=== PATIENT | female | born 1980 | race Caucasian/White ===

== ENCOUNTER 2020-04-19 17:19 | Outpatient (CLI) | payer OTHER, SELFPAY ==
[2020-04-19 18:39] LABS: Influenza Control Valid (Valid); SARS-CoV-2 Ag Negative (Negative)
[2020-04-20 23:33] LABS: SARS-CoV-2 RNA PCR Negative
== END 2020-04-19 17:20 | disposition home or self-care (01) ==
LOC: CHSLAB 17:28
PROVIDERS: PCP Family Medicine; Visit Provider Family Medicine
DX: J00 Acute nasopharyngitis [common cold] (principal); Z20.822 Contact with and (suspected) exposure to COVID-19
CPT/HCPCS: 87426; 87804; C9803; U0003

== ENCOUNTER 2021-05-02 08:48 | Outpatient (CLI) | payer OTHER, SELFPAY ==
[2021-05-02 16:15] LABS: SARS-CoV-2 Ag Negative (Negative)
[2021-05-03 21:12] LABS: SARS-CoV-2 RNA PCR Negative
== END 2021-05-02 08:49 | disposition home or self-care (01) ==
LOC: CHSLAB 08:49
PROVIDERS: PCP Family Medicine; Visit Provider Family Medicine
DX: J06.9 Acute upper respiratory infection, unspecified (principal); Z20.822 Contact with and (suspected) exposure to COVID-19
CPT/HCPCS: 87426; C9803; U0003; U0005

== ENCOUNTER 2022-02-28 15:44 | Outpatient (CLI) | payer OTHER, SELFPAY ==
--- NOTE | ~2022-02-28 | XR_ITS ---
EXAMINATION: XR lumbar spine 2-3V DATE: 02/28/2022 16:10 INDICATION: Low back pain TECHNIQUE: Anteroposterior and lateral views of the lumbar spine, and cone-down lateral view of the l umbosacral junction were obtained. COMPARISON: None. FINDINGS: There are 2 mm of anterolisthesis of L5 on S1. Vertebral body alignment is otherwise normal . There is mild loss of intervertebral disc space height at L4-5. Again noted is a right-sided L5 par s interarticularis defects. There is no fracture. There is levocurvature of the lumbar spine. A moder ate volume of colonic stool is present. IMPRESSION: 1. Mild lumbar spondylosis without acute findings. Reviewed, dictated and finalized at location F. TY ADVISER
== END 2022-02-28 15:45 | disposition home or self-care (01) ==
LOC: CHSIMG 15:46
PROVIDERS: PCP Family Medicine; Visit Provider Family Medicine
DX: M54.9 Dorsalgia, unspecified (principal)
CPT/HCPCS: 72100

== ENCOUNTER 2022-03-26 12:36 | Outpatient (RCR) | payer OTHER, SELFPAY ==
--- NOTE | 2022-03-26 16:20 | PTOPEVAL1 ---
Assessment and note entered by Murphy Dudley, PT Evaluation Information Assessment Status Evaluation Diagnosis dorsalgia Onset 3 years ago Subjective Information Poonam reports she had severe back pain lifting her kid out of either the crib or playpen 3 years ago basically immobilizing her for a week and then hurt her back again 2 years ago, but not as bad. Since then she will have on/off back pain which she does not appear to know of a rhyme or reason for the pain. She will reports when she sleeps on her daughter's bed mattress it does bother her. She has an autistic son that she does have to help with his mobility. Reported Pain Level Pain Score 0: Self Report Additional Pain Score Comments Currently in no pain, but reports that she could start hurting tonight or tomorrow or next month. Assessment PT Clinical Summary Poonam is a 41 year old female coming into the clinic with recurrent exacerbations of low back pain starting three years ago. She presents with hip and core weakness along with hamstring and quads tightness the L side worse than the R side. Patient has signs and symptoms similar to sacroiliac dysfunction. Patient went home with HEP per doctor's order. Plan of Care PT Services Indicated No Treatment Frequency and 1 visit for HEP discharged from skilled physical Duration therapy. These treatments will address the objective and functional deficits as defined above. The patient will be advanced safely and appropriately in order for the patient to progress towards his/her prior level of function. Additional exercises will be introduced and as well as a comprehensive home exercise program upon discharge, if needed, ?to ensure carryover of functional gains achieved in the clinic. This treatment plan has been reviewed and agreement upon by the patient.
== END 2022-03-28 07:34 | disposition home or self-care (01) ==
LOC: ANHPT 12:36
PROVIDERS: PCP Family Medicine; Visit Provider Family Medicine
DX: M54.9 Dorsalgia, unspecified (principal); G89.29 Other chronic pain
CPT/HCPCS: 97110; 97161

== ENCOUNTER 2022-10-22 10:06 | Outpatient (RCR) | payer OTHER, SELFPAY ==
--- NOTE | 2022-10-22 11:06 | OPREHPOC ---
Outpatient Therapy Plan of Care This is a Multidisciplinary Plan of Care that may contain components documented by all disciplines (PT, OT, and ST.) PT Problem 1 PT Problem #1 Knowledge Deficit PT Goal 1 Goal Patient will demonstrate independence with home exercise program PT Problem 2 PT Problem #2 Pain PT Goal 1 Goal 1. Patient will report back pain at 2/10 with walking at home 2. Patient will report back pain at 2/10 when laying in bed PT Problem 3 PT Problem #3 Impaired Functional Mobil PT Goal 1 Goal 1. Patient will self report ability to lift son at home with back pain rated as 2/10 or less PT Problem 4 PT Problem #4 Impaired Flexibility PT Goal 1 Goal 1. Patient will demonstrate bilateral hamstring length at 80 degrees PT Problem 5 PT Problem #5 Impaired Strength PT Goal 1 Goal 1. Patient will demonstrate ability to perform 20 reps supine straight leg raise 2. Patient will demonstrate ability to perform 20 reps prone hip extension
--- NOTE | 2022-10-22 11:06 | PTOPEVAL1 ---
Assessment and note entered by Hailey Ybarra, PT Evaluation Information Assessment Status Evaluation Diagnosis back pain, L5 pars interticularis defect R side Onset 3 years ago Subjective Information Patient referred to physical therapy due to back pain by primary MD. Patient has an appointment with the surgeon on November 02 to determine plan of care. Patient currently denies pain however at its worst pain will reach 10/10 limiting ability to stand. Patient denies numbness or tingling of extremities or bowel/bladder incontinence. Patient goal is to decrease pain and be able to sampler pickup her 5 year old son. Reported Pain Level Pain Score 0: Self Report Additional Pain Score Comments pain can increase to 10/10 worsened by lifting or laying. Patient reports she is able to relieve her pain by sitting up. Patient uses lidocaine patches which provide intermittent relief. Assessment PT Clinical Summary Patient was referred to PT by primary physician due to chronic back pain. Patient has an appointment scheduled with surgeon at [facility] for November 02 due to finding of L5 pars interarticularis fx and other potential fractures. Patient currently reporting pain as 0/10 however reports on most days her pain can increase to 10/10 with her being unable to get up out of the chair. Patient presents with core and lower extremity weakness, tightness of bilateral hamstring/ piriformis musculature, paraspinal hypomobility. Lumbar mobility not assessed at this time and spine kept in neutral throughout assessment, following surgeon appt and further discussion regarding medical plan of care lumbar mobility may be assessed. Patient would benefit from skilled therapy services 1-2x/wk for 4 weeks to improve core/lower extremity strength, improve muscle length, improve posture in order to perform daily activities at home without pain. Patient educated regarding log rolling technique when getting in/ out of bed and to avoid lifting heavy objects until appointment with surgeon and further plan of care is determined. Plan of Care Interventions Aquatic Therapy,Electrical Stimulation,Hot Pack/ Cold Pack,Manual Therapy,Neuro Re-education, Therapeutic Activities,Therapeutic Exercise, Ultrasound Other Interventions cupping, taping, iastm PT Services Indicated
== END 2023-01-08 15:32 | disposition home or self-care (01) ==
LOC: ANHPT 10:06
PROVIDERS: PCP Family Medicine; Visit Provider Family Medicine
DX: M54.9 Dorsalgia, unspecified (principal); G89.29 Other chronic pain
CPT/HCPCS: 97110; 97140; 97162

== ENCOUNTER 2022-10-30 16:14 | Outpatient (CLI) | payer OTHER, SELFPAY ==
[2022-10-30 16:39] LABS: Basophils Absolute Auto 0.02 K/mm3 (0.00-0.10); Basophils Percent Auto 0.4 % (0.0-1.0); Bilirubin Urine Negative (Negative); Blood Urine Negative (Negative); Color Urine Light Yellow (Yellow); Eosinophils Absolute Auto 0.16 K/mm3 (0.02-0.50); Eosinophils Percent Auto 3.2 % (1.0-6.0); Glucose Urine UA Negative (Negative); Hematocrit 34.1 % (35.0-49.0); Hemoglobin 11.1 g/dL (12.0-15.0); Ketones Urine Negative (Negative); Leukocyte Esterase Ur 1+ (Negative); Lymphocytes Absolute Auto 2.04 K/mm3 (1.10-4.50); Lymphocytes Percent Auto 41.3 % (18.0-42.0); Mean Corpuscular HGB Conc 32.6 g/dL (32.0-36.0); Mean Corpuscular Volume 95.3 fL (78.0-102.0); Mean Platelet Volume 10.6 fl (9.2-11.8); Monocytes Absolute Auto 0.38 K/mm3 (0.10-0.90); Monocytes Percent Auto 7.7 % (2.0-11.0); Neutrophils Absolute Auto 2.3 K/mm3 (1.7-7.2); Neutrophils Percent Auto 47.4 % (50.0-70.0); Nitrate Urine Negative (Negative); Platelet Count Result 243 K/mm3 (150-420); Protein Urine Negative (Negative); Red Blood Count 3.58 M/mm3 (4.20-5.40); Red Cell Distribution Width 11.8 % (11.6-14.4); Specific Grav Ur 1.025 (1.010-1.020); Urobilinogen Urine 0.2 mg/dL (0.2-1.0); White Blood Count 4.9 K/mm3 (4.8-10.8); pH Urine 6.5 (5.0-8.0)
[2022-10-30 16:49] LABS: Add Urine Microscopic? YES; Appearance Urine Slightly Cloudy (Clear); Bacteria Urine 1+ /hpf; D Dimer 0.28 mg/L (0.19-0.50); Mucus Urine Moderate /lpf; RBC Urine None seen /hpf (0-2); Squamous Epithelial Cell Urine Moderate /hpf (Few)
[2022-10-30 17:03] LABS: Alanine Aminotransferase 26 U/L (14-59); Albumin Level 3.8 g/dL (3.4-5.0); Alkaline Phosphatase 78 U/L (46-116); Anion Gap 7 mmol/L (8-16); Aspartate Amino Transferase 19 U/L (15-37); Bilirubin,Total 0.2 mg/dL (0.00-1.00); Blood Urea Nitrogen 23 mg/dL (7-18); Calcium 8.9 mg/dL (8.5-10.1); Carbon Dioxide 31 mmol/L (21-32); Chloride 103 mmol/L (98-108); Estimated Glomerular Filt Rate > 60; Glucose 96 mg/dL (70-99); Osmolality Calculated 295 mOsm/kg (285-295); Potassium 3.9 mmol/L (3.5-5.1); Sodium 141 mmol/L (136-145); Thyroid Stimulating Hormone 8.58 uIU/mL (0.36-3.74); Total Protein 7.7 g/dL (6.4-8.2)
[2022-10-30 19:22] LABS: Free T4 Free Thyroxine 0.77 ng/dL (0.76-1.46)
== END 2022-10-30 16:15 | disposition home or self-care (01) ==
LOC: CHSLAB 16:16
PROVIDERS: PCP Family Medicine; Visit Provider Family Medicine
DX: R53.82 Chronic fatigue, unspecified (principal); R60.0 Localized edema
CPT/HCPCS: 36415; 80053; 81001; 84439; 84443; 85025; 85380

== ENCOUNTER 2023-05-20 10:34 | Outpatient (CLI) | payer OTHER, SELFPAY ==
[2023-05-20 10:52] LABS: Basophils Absolute Auto 0.02 K/mm3 (0.00-0.10); Basophils Percent Auto 0.4 % (0.0-1.0); Eosinophils Absolute Auto 0.17 K/mm3 (0.02-0.50); Eosinophils Percent Auto 3.7 % (1.0-6.0); Hematocrit 33.7 % (35.0-49.0); Immature Granulocyte Absolute 0.01 K/mm3 (0.00-0.00); Immature Granulocyte Percent A 0.2 % (0.0-0.0); Lymphocytes Absolute Auto 2.12 K/mm3 (1.10-4.50); Lymphocytes Percent Auto 45.6 % (18.0-42.0); Mean Corpuscular HGB Conc 32.6 g/dL (32.0-36.0); Mean Corpuscular Hemoglobin 29.4 pg (27.0-31.0); Mean Corpuscular Volume 90.1 fL (78.0-102.0); Mean Platelet Volume 10.1 fl (9.2-11.8); Monocytes Absolute Auto 0.38 K/mm3 (0.10-0.90); Monocytes Percent Auto 8.2 % (2.0-11.0); Neutrophils Percent Auto 41.9 % (50.0-70.0); Platelet Count Result 265 K/mm3 (150-420); Red Blood Count 3.74 M/mm3 (4.20-5.40); Red Cell Distribution Width 12.1 % (11.6-14.4); White Blood Count 4.7 K/mm3 (4.8-10.8)
[2023-05-20 11:28] LABS: Alanine Aminotransferase 36 U/L (14-59); Albumin Level 3.4 g/dL (3.4-5.0); Alkaline Phosphatase 88 U/L (46-116); Anion Gap 5 mmol/L (8-16); Aspartate Amino Transferase 27 U/L (15-37); Bilirubin,Total 0.3 mg/dL (0.00-1.00); Blood Urea Nitrogen 18 mg/dL (7-18); Calcium 8.8 mg/dL (8.5-10.1); Carbon Dioxide 31 mmol/L (21-32); Chloride 104 mmol/L (98-108); Estimated Glomerular Filt Rate > 60; Glucose 95 mg/dL (70-99); Osmolality Calculated 291 mOsm/kg (285-295); Sodium 140 mmol/L (136-145); Thyroid Stimulating Hormone 1.53 uIU/mL (0.36-3.74); Total Protein 7.2 g/dL (6.4-8.2)
== END 2023-05-20 10:35 | disposition home or self-care (01) ==
LOC: CHSLAB 10:37
PROVIDERS: PCP Family Medicine; Visit Provider Family Medicine
DX: E03.9 Hypothyroidism, unspecified (principal)
CPT/HCPCS: 36415; 80053; 84443; 85025

== ENCOUNTER 2023-11-17 16:59 | Outpatient (CLI) | payer BC, SELFPAY ==
[2023-11-18 18:46] LABS: Thyroid Stimulating Hormone 0.43 uIU/mL (0.36-3.74)
== END 2023-11-17 17:00 | disposition home or self-care (01) ==
PROVIDERS: PCP Family Medicine; Visit Provider Family Medicine
DX: E03.9 Hypothyroidism, unspecified (principal)
CPT/HCPCS: 36415; 84443